=== PATIENT | male | born 1960 | race Caucasian/White ===

== ENCOUNTER 2018-09-17 23:37 | Emergency (ER) | payer MEDICAID, MEDICARE ==
[~2018-09-17] VITALS: Ht 172.7 cm; Wt 87.4 kg
[~2018-09-17 23:37] MED LIST: OMEPRAZOLE; [UNRECOGNIZED DRUG - OTHER]; propanalol PO
[2018-09-17 23:39] VITALS: BP 137/107
--- NOTE | 2018-09-18 01:03 | NUR ---
PT RESTING FLAT ON [facility] WITH C COLLAR IN PLACE. AWAITING XRAYS
== END 2018-09-18 01:51 | disposition home or self-care (01) ==
LOC: ED 23:59
DX: S16.1XXA Strain of muscle, fascia and tendon at neck level, initial encounter (principal); V49.49XA Driver injured in collision with other motor vehicles in traffic accident, initial encounter; Y93.89 Activity, other specified; Y92.410 Unspecified street and highway as the place of occurrence of the external cause; Y99.8 Other external cause status
CPT/HCPCS: 72020; 72050; 99283

== ENCOUNTER 2018-11-04 08:02 | Day surgery (SDC) | payer MEDICARE, MEDICAID ==
[2018-11-02 13:02] VITALS: BP 142/92
[2018-11-02 13:31] LABS: BASOPHILS # (AUTO) 0.04 x10^3/uL (0-0.1); BASOPHILS % (AUTO) 1 % (0-1); EOSINOPHILS # (AUTO) 0.23 x10^3/uL (0-0.4); EOSINOPHILS % (AUTO) 4 % (1-7); LYMPHOCYTES # (AUTO) 1.16 x10^3/uL (1-3.4); LYMPHOCYTES % (AUTO) 22 % (22-44); MD NO; MEAN CORPUSCULAR HEMOGLOBIN 31.3 pg (27.5-34.5); MEAN CORPUSCULAR HGB CONC 34.2 g/dL (33.2-36.2); MEAN CORPUSCULAR VOLUME 91.4 fL (81-97); MEAN PLATELET VOLUME 8.4 fL (7.4-10.4); MONOCYTES # (AUTO) 0.36 x10^3/uL (0.2-0.8); MONOCYTES % (AUTO) 7 % (2-9); NEUTROPHILS # (AUTO) 3.59 x10^3/uL (1.8-6.8); NEUTROPHILS % (AUTO) 67 % (42-75); PLATELET COUNT 121 x10^3/uL (130-400); RED BLOOD COUNT 5.04 x10^6/uL (4.38-5.82); RED CELL DISTRIBUTION WIDTH 13.2 % (9.4-14.8)
[2018-11-02 13:38] LABS: INTERNATIONAL NORMALIZED RATIO 1.11 (0.93-1.1); PROTHROMBIN TIME 11.6 Seconds (9.6-11.5)
[2018-11-02 13:45] LABS: CHLORIDE 106 mmol/L (98-107)
[2018-11-02 13:50] LABS: ANION GAP 7 mmol/L (5-15); CALCIUM 8.8 mg/dL (8.5-10.1); CREATININE 1.32 mg/dL (0.7-1.3)
[~2018-11-04] VITALS: Ht 172.7 cm; Wt 84.0 kg
[~2018-11-04 08:02] MED LIST changes: +ALBU18HF INH; +TIOT4MIS3 INH
[2018-11-04] MEDS ORDERED: DIPHENHYDRAMINE 50 MG/ML, 1ML ONE (08:03)
[2018-11-04] MEDS ORDERED: SPIR25TA5 PO (08:15)
[2018-11-04] MEDS ORDERED: DIPHENHYDRAMINE 50 MG/ML, 1ML IVPush ONE (08:30)
[2018-11-04] MEDS ORDERED: FENTANYL PF 250 MCG/5ML ONE (10:26)
[2018-11-04] MEDS ORDERED: HEPARIN 1,000 UNITS/ML, 10ML ONE (10:26)
[2018-11-04] MEDS ORDERED: MIDAZOLAM 1 MG/ML, 5ML ONE (10:26)
[2018-11-04] MEDS ORDERED: VERAPAMIL 2.5 MG/ML, 2ML ONE (10:26)
[2018-11-04] MEDS ORDERED: LIDOCAINE-MPF 1%, 5ML ONE (10:27)
[2018-11-04] MEDS ORDERED: SODIUM CHLORIDE 0.9% IV PRN (11:00)
[2018-11-04] MEDS ORDERED: SODIUM CHLORIDE 0.9% 1,000 ML IV SCH ×2 (11:00→11:32)
[2018-11-04] MEDS ORDERED: ADENOSINE IV PRN (11:00)
== END 2018-11-04 13:15 | disposition home or self-care (01) ==
LOC: CACL 08:02
PROVIDERS: ATTEND Internal Medicine Cardiovascular Disease
DX: I25.10 Atherosclerotic heart disease of native coronary artery without angina pectoris (principal); I27.21 Secondary pulmonary arterial hypertension; F19.90 Other psychoactive substance use, unspecified, uncomplicated; J44.9 Chronic obstructive pulmonary disease, unspecified; F17.210 Nicotine dependence, cigarettes, uncomplicated; Z88.1 Allergy status to other antibiotic agents
CPT/HCPCS: 36415; 80048; 85025; 85610; 93460; 93463; 99156; 99157; C1769; C1894; J1200; J1644; J2250; J3010; Q9967

== ENCOUNTER 2018-11-07 10:57 | Emergency (ER) | payer MEDICARE, MEDICAID ==
[~2018-11-07] VITALS: Ht 172.7 cm; Wt 84.9 kg
[~2018-11-07 10:57] MED LIST changes: +SPIR25TA5 PO
[2018-11-07] MEDS ORDERED: HYDROcodone/APAP 5/325 TABLET PO ONE (11:30)
[2018-11-07 11:39] LABS: BASOPHILS # (AUTO) 0.02 x10^3/uL (0-0.1); BASOPHILS % (AUTO) 0 % (0-1); EOSINOPHILS # (AUTO) 0.21 x10^3/uL (0-0.4); EOSINOPHILS % (AUTO) 4 % (1-7); LYMPHOCYTES # (AUTO) 1.07 x10^3/uL (1-3.4); LYMPHOCYTES % (AUTO) 19 % (22-44); MD NO; MEAN CORPUSCULAR HEMOGLOBIN 31.2 pg (27.5-34.5); MEAN CORPUSCULAR HGB CONC 33.9 g/dL (33.2-36.2); MEAN CORPUSCULAR VOLUME 92.1 fL (81-97); MEAN PLATELET VOLUME 8.1 fL (7.4-10.4); MONOCYTES # (AUTO) 0.52 x10^3/uL (0.2-0.8); MONOCYTES % (AUTO) 9 % (2-9); NEUTROPHILS % (AUTO) 67 % (42-75); PLATELET COUNT 124 x10^3/uL (130-400); RED BLOOD COUNT 4.84 x10^6/uL (4.38-5.82); RED CELL DISTRIBUTION WIDTH 13.4 % (9.4-14.8)
[2018-11-07 11:50] LABS: ALBUMIN 3.9 g/dL (3.4-5.0); ANION GAP 7 mmol/L (5-15); CALCIUM 8.9 mg/dL (8.5-10.1); CHLORIDE 109 mmol/L (98-107); CREATININE 1.15 mg/dL (0.7-1.3)
[2018-11-07] MEDS ORDERED: HYDROcodone/APAP 5/325 TABLET ONE (12:24)
[2018-11-07 12:42] LABS: MICROSCOPIC NOT IND
[2018-11-07 12:45] LABS: CULTURE INDICATED? NO
[2018-11-07] MEDS ORDERED: KETOROLAC 60 MG/2 ML ONE (12:51)
[2018-11-07] MEDS ORDERED: KETOROLAC 30 MG/1 ML IM ONE (13:00)
[2018-11-07 13:13] VITALS: BP 147/87
== END 2018-11-07 13:17 | disposition home or self-care (01) ==
LOC: ED 11:57
DX: M54.40 Lumbago with sciatica, unspecified side (principal); F17.200 Nicotine dependence, unspecified, uncomplicated; I10 Essential (primary) hypertension; J44.9 Chronic obstructive pulmonary disease, unspecified; Z86.79 Personal history of other diseases of the circulatory system
CPT/HCPCS: 36415; 72110; 80048; 81003; 82040; 85025; 96372; 99284; J1885